=== PATIENT | female | born 1990 | race Caucasian/White ===

== ENCOUNTER 2020-10-09 00:55 | Emergency (ER) | payer OTHER | END 2020-10-09 10:57 | disposition home or self-care (01) | LOC: ER1 00:55 | DX: S09.90XA Unspecified injury of head, initial encounter (principal); W01.198A Fall on same level from slipping, tripping and stumbling with subsequent striking against other object, initial encounter; Y92.009 Unspecified place in unspecified non-institutional (private) residence as the place of occurrence of the external cause | CPT/HCPCS: 70450; 81001; 84703; 96372; 99284; J1885 ==